=== PATIENT | female | born 1980 | race Caucasian/White ===

== ENCOUNTER 2020-12-29 08:19 | Day surgery (SDC) | payer OTHER ==
[~2020-12-29 08:19] MED LIST: Albuterol 0.083% 2.5 MG/3 ML Neb Soln NEB PRN; Doxycycline 100 MG Cap PO ONE; HYDROmorphone 2 MG/ML Syringe IVPUSH PRN; Metoclopramide 10 MG/2 ML SDV IVPUSH PRN; Morphine 2 MG/ML SYRINGE IVPUSH PRN; Naloxone 0.4 MG/ML Syringe IVPUSH PRN; Ondansetron 4 MG/2 ML SDV IVPUSH PRN; Sodium Chloride 0.9% 10 ML SDV IV PRN; Sodium Chloride 0.9% 10 ML Syringe FLUSH PRN; Sodium Chloride 0.9% 2.5 ML Syringe FLUSH PRN; fentaNYL 100 MCG/2 ML SDV IVPUSH PRN
--- NOTE | 2020-12-29 09:18 | PCM.PREANE ---
Preanesthetic Assessment - Anesthesia/Transfusion/Family Hx Anesthesia History: Prior Anesthesia Without Reaction Family History of Anesthesia Reaction: No Transfusion History: No Prior Transfusion(s) - Review of Systems General: No Symptoms Pulmonary: No Symptoms Cardiovascular: No Symptoms Gastrointestinal: No Symptoms Neurological: No Symptoms Other: Reports: None - Physical Assessment NPO Status Date: 12/29/20 NPO Status Time: 00:00 Vital Signs: Last Vital Signs Temp 97.2 F 12/29/20 08:37 Pulse 76 12/29/20 08:37 Resp 16 12/29/20 08:37 BP 118/79 12/29/20 08:37 Pulse Ox 98 12/29/20 08:37 Height: 6 ft Weight: 200 lb ASA Class: 2 Mental Status: Alert & Oriented x3 Airway Class: Mallampati = 1 Dentition: Reports: Normal Dentition ROM/Head Extension: Full Lungs: Clear to Auscultation, Normal Respiratory Effort Cardiovascular: Regular Rate, Regular Rhythm - Lab Values: Laboratory Last Values WBC 9.41 K/uL (4.0-11.0) 12/28/20 15:55 RBC 4.04 M/uL (4.30-5.90) L 12/28/20 15:55 Hgb 12.3 g/dL (12.0-16.0) 12/28/20 15:55 Hct 36.8 % (36.0-46.0) 12/28/20 15:55 MCV 91.1 fL (80.0-98.0) 12/28/20 15:55 MCH 30.4 pg (27.0-32.0) 12/28/20 15:55 MCHC 33.4 g/dL (31.0-37.0) 12/28/20 15:55 RDW Std Deviation 44.7 fl (28.0-62.0) 12/28/20 15:55 RDW Coeff of Andrew 13 % (11.0-15.0) 12/28/20 15:55 Plt Count 278 K/uL (150-400) 12/28/20 15:55 MPV 10.20 fL (7.40-12.00) 12/28/20 15:55 Nucleated RBC % 0.0 /100WBC 12/28/20 15:55 Nucleated RBCs # 0 K/uL 12/28/20 15:55 SARS-CoV-2 RNA (JANELLE) NEGATIVE (NEGATIVE) 12/28/20 16:10 Blood Type A POSITIVE 12/28/20 15:55 Antibody Screen NEGATIVE 12/28/20 15:55 - Allergies Allergies/Adverse Reactions: Allergies Allergy/AdvReac Type Severity Reaction Status Date / Time adhesive tape Allergy Rash Verified 12/29/20 08:41 amoxicillin Allergy Hives Verified 12/29/20 08:41 gluten Allergy Abdominal Verified 12/29/20 08:41 Pain latex Allergy Rash Verified 12/29/20 08:41 omeprazole [From Prilosec] Allergy Hives Verified 12/29/20 08:41 Penicillins Allergy Hives Verified 12/29/20 08:41 ranitidine [From Zantac] Allergy Hives Verified 12/29/20 08:41 - Acknowledgements Anesthesia Type Planned: General Anesthesia Pt an Appropriate Candidate for the Planned Anesthesia: Yes Alternatives and Risks of Anesthesia Discussed w Pt/Guardian: Yes Pt/Guardian Understands and Agrees with Anesthesia Plan: Yes PreAnesthesia Questionnaire HEENT History: Reports: Other (See Below) Other HEENT History: wears glasses, has invisiline aparatus in mouth Respiratory History: Reports: Asthma Other Respiratory History: has "sports induced" asthma- has not used inhaler for 6 months Gastrointestinal History: Reports: None Genitourinary History: Reports: None [employer] History: Reports: Ectopic , , Spontaneous Musculoskeletal History: Reports: Fracture Other Musculoskeletal History: hx of fx foot and elbow- no surgery Neurological History: Reports: Other (See Below) Other Neuro History: hx of motion sickness Psychiatric History: Reports: Anxiety, Depression, PTSD Endocrine/Metabolic History: Reports: Hypothyroidism Other Endocrine/Metabolic History: hypothyroidism during - no medication now Hematologic History: Reports: None Immunologic History: Reports: None Oncologic (Cancer) History: Reports: None Dermatologic History: Reports: Eczema - Past Surgical History Head Surgeries/Procedures: Reports: None HEENT Surgical History: Reports: Other (See Below) Other HEENT Surgeries/Procedures: lymph nodes removed in neck Cardiovascular Surgical History: Reports: Varicose Other Cardiovascular Surgeries/Procedures: vein surgery due to vein valve issues and 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 GI Surgical History: Reports: Appendectomy Female Surgical History: Reports: Dilitation & Evacuation, Other (See Below) Other Female Surgeries/Procedures: Exploratory surgery for Ectopic Endocrine Surgical History: Reports: None Neurological Surgical History: Reports: None Musculoskeletal Surgical History: Reports: None Oncologic Surgical History: Reports: None Dermatological Surgical History: Reports: None - SUBSTANCE USE Tobacco Use Status *Q: Former Tobacco User Tobacco Use Within Last Twelve Months: No Recreational Drug Use History: No - HOME MEDS Home Medications: Home Meds Albuterol Sulfate [Albuterol Sulfate HFA] 2 puff INH Q6H PRN 12/28/20 [History] Ascorbic Acid/Collagen Hydr [Collagen Plus Vit C] 1 cap PO DAILY 12/28/20 [H istory] Cod Liver Oil 1 cap PO DAILY 12/28/20 [History] Folic Acid 1 mg PO DAILY 12/28/20 [History] Folic Acid/Vit B Complex and C [Super B Complex Tablet] 400 mcg PO DAILY 12/28/20 [History] Multivitamin with Minerals [Hair, Skin and Nails] 1 tab PO DAILY 12/28/20 [History] Progesterone, Micronized [Crinone] 1 dose TOP DAILY 12/28/20 [History] Triamcinolone Acetonide [Triamcinolone Acetonide 0.1% Crm] 1 dose TOP TID PRN 12/28/20 [History] - CURRENT (IN HOUSE) MEDS Current Meds: Current Medications Albuterol (Albuterol 0.083% 2.5 Mg/3 Ml Neb Soln) 2.5 mg NEB ONETIME PRN PRN Reason: Wheezing Droperidol (Droperidol 5 Mg/2 Ml Sdv) 0.625 mg IVPUSH ONETIME PRN PRN Reason: Nausea/Vomiting Fentanyl (Fentanyl 100 Mcg/2 Ml Sdv) 50 mcg IVPUSH Q5M PRN PRN Reason: Pain (mild 1-3) Hydromorphone HCl (Hydromorphone 2 Mg/Ml Syringe) 0.5 mg IVPUSH Q10M PRN PRN Reason: Pain (moderate 4-6) Metoclopramide HCl (Metoclopramide 10 Mg/2 Ml Sdv) 10 mg IVPUSH ONETIME PRN PRN Reason: Nausea/Vomiting Morphine Sulfate (Morphine 2 Mg/Ml Syringe) 2 mg IVPUSH Q10M PRN PRN Reason: Pain (severe 7-10) Naloxone HCl (Naloxone 0.4 Mg/Ml Syringe) 0.1 mg IVPUSH ASDIRECTED PRN PRN Reason: Respiratory Depression Ondansetron HCl (Ondansetron 4 Mg/2 Ml Sdv) 4 mg IVPUSH ONETIME PRN PRN Reason: Nausea/Vomiting Sodium Chloride (Sodium Chloride 0.9% 10 Ml Syringe) 10 ml FLUSH ASDIRECTED PRN PRN Reason: Keep Vein Open Sodium Chloride (Sodium Chloride 0.9% 2.5 Ml Syringe) 2.5 ml FLUSH ASDIRECTED PRN PRN Reason: Keep Vein Open Sodium Chloride (Sodium Chloride 0.9% 10 Ml Sdv) 10 ml IV ASDIRECTED PRN PRN Reason: IV Use Discontinued Medications Doxycycline Hyclate (Doxycycline 100 Mg Cap) 200 mg PO ONETIME ONE Stop: 12/29/20 08:13
[2020-12-29] MEDS ORDERED: Propofol 200 MG/20 ML SDV ONE (10:13)
[2020-12-29] MEDS ORDERED: Ondansetron 4 MG/2 ML SDV ONE ×2 (10:14)
[2020-12-29] MEDS ORDERED: Metoclopramide 10 MG/2 ML SDV ONE (10:14)
[2020-12-29] MEDS ORDERED: fentaNYL 100 MCG/2 ML SDV ONE (10:14)
[2020-12-29] MEDS ORDERED: Lidocaine 2% 5 ML SDV ONE (10:14)
[2020-12-29] MEDS ORDERED: Glycopyrrolate 0.2 MG/ML SDV ONE (10:36)
[2020-12-29] MEDS ORDERED: Ketorolac 30 MG/ML SDV ONE (10:36)
[2020-12-29] MEDS ORDERED: Dexamethasone 4 MG/ML 5 ML MDV ONE (10:36)
[2020-12-29] MEDS ORDERED: Ketorolac 30 MG/ML SDV IVPUSH ONE (10:55)
[2020-12-29] MEDS ORDERED: Acetaminophen/HYDROcodone 325-5 MG Tab PO PRN (10:55)
[2020-12-29] MEDS ORDERED: Doxycycline 100 MG Cap ONE (11:00)
--- NOTE | 2020-12-29 12:03 | PCM.POSTAN ---
POST ANESTHESIA ASSESSMENT - MENTAL STATUS Mental Status: Alert, Oriented - VITAL SIGNS Vital Signs: Last Vital Signs Temp 97.3 F 12/29/20 10:54 Pulse 79 12/29/20 11:15 Resp 17 12/29/20 11:15 BP 99/44 L 12/29/20 11:15 Pulse Ox 97 12/29/20 11:15 - RESPIRATORY Respiratory Status: Respiratory Rate WNL, Airway Patent, O2 Saturation Stable - CARDIOVASCULAR CV Status: Pulse Rate WNL, Blood Pressure Stable - GASTROINTESTINAL GI Status: No Symptoms - POST OP HYDRATION Hydration Status: Adequate & Stable
--- NOTE | 2020-12-29 12:03 | PCM48HPAN ---
Post Anesthesia Note - EVALUATION WITHIN 48HRS OF ANESTHETIC Vital Signs in Normal Range: Yes Patient Participated in Evaluation: Yes Respiratory Function Stable: Yes Airway Patent: Yes Cardiovascular Function Stable: Yes Hydration Status Stable: Yes Pain Control Satisfactory: Yes Nausea and Vomiting Control Satisfactory: Yes Mental Status Recovered: Yes Vital Signs: Last Vital Signs Temp 97.3 F 12/29/20 10:54 Pulse 79 12/29/20 11:15 Resp 17 12/29/20 11:15 BP 99/44 L 12/29/20 11:15 Pulse Ox 97 12/29/20 11:15
--- NOTE | 2020-12-29 15:15 | OR ---
SURGEON: Manuel Perez MD DATE OF PROCEDURE: 12/29/2020 INDICATION FOR PROCEDURE: 40-year-old, G8, P3-0-4-3, with missed , presenting for scheduled surgery. The patient was diagnosed with missed with a fetus measuring 8 weeks 4 days on ultrasound with no cardiac activity. A repeat ultrasound one week later confirmed the same findings. Treatment options were reviewed with the patient including expectant management, medical and surgical management. She desired to proceed with dilation and suction curettage. PREOPERATIVE DIAGNOSIS: Missed . POSTOPERATIVE DIAGNOSIS: Missed . PROCEDURE PERFORMED: Dilation and suction curettage. ANESTHESIA: General anesthesia. ANESTHESIOLOGIST: Dr. Victor Hugo Christensen. FINDINGS: Uterus about eight-week size, anteverted and mobile. No adnexal masses. Products of conception were removed from the uterine cavity and sent to Pathology. Cytogenetics will be performed. ESTIMATED BLOOD LOSS: 50 mL. DESCRIPTION OF PROCEDURE: The procedure was discussed with the patient. The risks include bleeding, infection, and DVTs, injury to surrounding organs like bladder, bowel, or ureter. Questions were answered and consent was signed. The patient was brought to the operating room, where she was placed in dorsal lithotomy position. She was prepped and draped in usual sterile fashion with Betadine under general anesthesia. A bimanual exam revealed the uterus to be eight-week size, anteverted and mobile. No adnexal masses were felt. The cervix was exposed with a weighted speculum. It was normal appearing. The anterior lip of the cervix was grasped with an Allis clamp. The endocervical canal was progressively dilated with Hegar dilators up to a #9. A curved size #9 suction curette was then placed in the cervix and advanced to the fundus. It was connected to suction under adequate pressure. The suction curette was rotated slowly while extracting products of conception from the uterus. Three passes were made with the suction curette until very little product and bleeding was noted. A gentle curettage was then performed with a curette. The endometrium felt gritty and no additional products were noted. One additional pass was then made with the suction curette to remove any remaining blood clots and products. The products of conception were then sent to Pathology. The Allis clamp was removed from the cervix. Hemostasis was confirmed. Fundal massage was performed and the uterus was firm at the pubic bone, vaginal bleeding was minimal. The patient tolerated the procedure well and was awoken from anesthesia and taken to the recovery room in stable condition. ALIYAH PEÑA /[id number] MTDD
== END 2020-12-29 12:08 | disposition home or self-care (01) ==
LOC: MW.SDS 08:19
PROVIDERS: ATTEND Obstetrics & Gynecology
DX: O02.1 Missed abortion (principal); E03.9 Hypothyroidism, unspecified; Z90.49 Acquired absence of other specified parts of digestive tract; Z98.890 Other specified postprocedural states; Z87.891 Personal history of nicotine dependence; Z88.0 Allergy status to penicillin; Z88.1 Allergy status to other antibiotic agents; Z88.8 Allergy status to other drugs, medicaments and biological substances; Z91.040 Latex allergy status; Z20.822 Contact with and (suspected) exposure to COVID-19; Z3A.08 8 weeks gestation of pregnancy; Z79.899 Other long term (current) drug therapy
CPT/HCPCS: 36415; 59820; 85027; 86850; 86900; 86901; 87635; 88233; 88305; A9270; J0131; J1100; J2405; J2704; J2765; J3010; J3490; 01965; J1885; U0002